=== PATIENT | female | born 1955 ===

== ENCOUNTER 2022-03-13 16:20 | Inpatient (IN) | payer OTHER ==
[~2022-03-13] VITALS: Ht 165.1 cm; Wt 79.8 kg
[2022-03-14] MEDS ORDERED: TOPROL XL25 M1 PO (13:56)
[2022-03-14] MEDS ORDERED: PEPCID AC20 MG PO (13:56)
[2022-03-14] MEDS ORDERED: COZAAR100 MG PO (13:56)
[2022-03-18] MEDS ORDERED: LOPRESSOR25 MG (13:34)
[2022-03-31] MEDS ORDERED: INTESTINEX680 M1 PO (14:27)
[2022-03-31] MEDS ORDERED: HYOSCYAMINE0.125 M1 SL (14:27)
== END 2022-03-31 21:19 | disposition home or self-care (01) | DRG 330 ==
LOC: SURH 03-18 08:30 → O/R 03-18 08:30 → SURH 03-18 09:30
PROVIDERS: Urology; ADMIT Surgery; ATTEND Surgery
PROC: 0DQ84ZZ Repair Small Intestine, Percutaneous Endoscopic Approach (ICD-10-PCS; 2022-03-18)
PROC: 0DNW4ZZ Release Peritoneum, Percutaneous Endoscopic Approach (ICD-10-PCS; 2022-03-18)
PROC: 0DJD8ZZ Inspection of Lower Intestinal Tract, Via Natural or Artificial Opening Endoscopic (ICD-10-PCS; 2022-03-18)
PROC: 0T9B40Z Drainage of Bladder with Drainage Device, Percutaneous Endoscopic Approach (ICD-10-PCS; 2022-03-18)
PROC: 0DTN4ZZ Resection of Sigmoid Colon, Percutaneous Endoscopic Approach (ICD-10-PCS; principal; 2022-03-18 09:45)
PROC: 0DBP4ZZ Excision of Rectum, Percutaneous Endoscopic Approach (ICD-10-PCS; 2022-03-18 09:45)
PROC: BW21YZZ Computerized Tomography (CT Scan) of Abdomen and Pelvis using Other Contrast (ICD-10-PCS; 2022-03-26)
PROC: 02HV33Z Insertion of Infusion Device into Superior Vena Cava, Percutaneous Approach (ICD-10-PCS; 2022-03-27)
DX: K57.30 Diverticulosis of large intestine without perforation or abscess without bleeding (principal); K56.7 Ileus, unspecified; K91.89 Other postprocedural complications and disorders of digestive system; N99.4 Postprocedural pelvic peritoneal adhesions; N73.6 Female pelvic peritoneal adhesions (postinfective); K29.00 Acute gastritis without bleeding; R19.09 Other intra-abdominal and pelvic swelling, mass and lump; I10 Essential (primary) hypertension; Z20.822 Contact with and (suspected) exposure to COVID-19